=== PATIENT | female | born 1945 | race Caucasian/White ===

== ENCOUNTER → 2025-02-11 | Outpatient (CLI) | payer MEDICARE ==
[~2025-02-11] MED LIST: PANT40TA55 PO
[2025-02-11] MEDS: REGADENOSON 0.4 MG/5 ML PF SYG IVP ONE (11:52)
--- NOTE | 2025-02-11 14:51 | HMCSR ---
APPROVED REPORT Height: 5 ft 6in Weight: 120 lbs TEST INDICATIONS CAD The imaging protocol used to acquire images was Rest Tc-99m/stress Tc-99m 1 day Consent: The procedure was explained and understood by the patient. Informerd consent was witnessed Rosendo Guaman RN First, low dose rest was performed then high dose stress. RESTING DATA: The resting ekg shows: NSR Rest SPECT myocardial perfusion imaging was performed in supine position minutes following the intra venous injection of 11 mCi of Tc-99 Sestamibi. Time of rest injection: 11:05: Date: 02/11/2025 PHARMACOLOGIC STRESS: Pharmacologic stress test was performed by injecting regadenoson 0.4 mg IV push followed by the intra venous injection of 29 mCi of Tc-99 Sestamibi. Time of stress injection: 12:53: Date: 02/11/2025 Heart Rate at time of stress injection: 59 bpm. Gated Stress SPECT was performed 60 minutes after stress injection. The images were gated to evaluate regional wall motion and calculate left ventricular ejection fracti on. STRESS DETAILS Reason for Termination: Infusion complete Stress Symptoms: Dyspnea, Stomach Cramps Max HR Achieved: 114 bpm % of APMHR Achieved: 95 Max Blood Pressure: 203/75 mmHg Stress ECG: Tachycardia Arrhythmia: No. ST Change: No. Study quality was fair. Artifact: breast artifact, motion artifact LEFT VENTRICLE Size: The left ventricular size is normal. Systolic Function:The left ventricular systolic function is low-normal. Wall Motion: No regional wall motion abnormalities noted. The left ventricular ejection fraction was calculated to be 54%.TID = . LV PERFUSION The rest and stress images show normal perfusion. No reversible ischemia or areas of infarct were se en. No obvious TID. RV Size/Shape The right ventricle was not well-visualized. IMPRESSION Stress ECG Summary: Nondiagnostic Conclusion Normal lexiscan stress test. The rest and stress images show normal perfusion. No reversible ischemia or areas of infarct were se en. No obvious TID. The left ventricular size is normal. No regional wall motion abnormalities noted. The left ventricula r systolic function is low-normal. Post-stress LVEF was calculated to be 54%. Stress ECG Summary: Nondiagnostic Study indicates a low risk for cardiovascular events.
== END | disposition home or self-care (01) ==
LOC: RAH 10:20
PROVIDERS: ATTEND Internal Medicine Cardiovascular Disease
DX: R00.0 Tachycardia, unspecified (principal); I25.119 Atherosclerotic heart disease of native coronary artery with unspecified angina pectoris; I25.84 Coronary atherosclerosis due to calcified coronary lesion
CPT/HCPCS: 78452; 93017; J2785; A9500 ×2